=== PATIENT | male | born 1965 | race African-American/Black ===

== ENCOUNTER 2024-02-09 01:10 | Emergency (ER) | payer OTHER ==
[2024-02-09 03:42] LABS: MCHC 32.1 g/dL (32.0-36.0); MCV 90.3 fL (80-100); MPV 8.1 fL (7.6-11.3); Platelets 63 thou/uL (152-406); Red Cell Distribution Width 15.5 % (12.1-15.2)
[2024-02-09 03:57] LABS: ALT/SGPT 21 U/L (16-61); AST/SGOT 45 U/L (15-37); Albumin 2.3 g/dL (3.4-5.0); Albumin/Globulin Ratio 0.5 (1.1-1.8); Alkaline Phosphatase 180 U/L (45-117); Anion Gap 5.5 mEq/L (5.0-15.0); BUN Blood Urea Nitrogen 6 mg/dL (7-18); Bicarbonate 28 mEq/L (21-32); Bilirubin Total 3.8 mg/dL (0.2-1.0); Globulin 4.9 g/dL (2.3-3.5); Glomerular Filtration Rate 100 ml/min (=/>90); Glucose Level 147 mg/dL (74-106); Lipase 19 U/L (13-75); Potassium 3.5 mEq/L (3.5-5.1); Protein, Total 7.2 g/dL (6.4-8.2); Sodium Level 139 mEq/L (136-145)
[2024-02-09 03:58] LABS: C-Reactive Protein < 2.90 mg/L (<3.00)
--- NOTE | 2024-02-09 04:17 | ER ---
Nurse's Notes [facility] Name: Klaus Casillas Age: 59 yrs Sex: Male : 1965 Arrival Date: 02/09/2024 Time: 01:10 Bed 5 Private MD: Diagnosis: Vomiting, unspecified;Acute gastritis Presentation: 02/08 01:24 Chief complaint: Patient states: upper abdominal pain radiating to right flank with lg3 vomiting X1 hr. Coronavirus screen: Client denies travel out of the [place] in the last 14 days. At this time, the client does not indicate any symptoms associated with coronavirus-19. Ebola Screen: No symptoms or risks identified at this time. Initial Sepsis Screen: Does the patient meet any 2 criteria? No. Patient's initial sepsis screen is negative. Does the patient have a suspected source of infection? No. Patient's initial sepsis screen is negative. Risk Assessment: Do you want to hurt yourself or someone else? Patient reports no desire to harm self or others. Onset of symptoms was February 09, 2024. 01:24 Method Of Arrival: Ambulatory lg3 01:24 Acuity: TL 3 lg3 Triage Assessment: 01:26 General: Appears in no apparent distress. uncomfortable, Behavior is calm, cooperative. lg3 Pain: Complains of pain in epigastric area Pain radiates to anterior aspect of right lateral abdomen. EENT: No deficits noted. No signs and/or symptoms were reported regarding the EENT system. Neuro: No deficits noted. [place] Agitation-Sedation Scale (RASS): 0 - Alert and Calm Level of Consciousness is awake, alert, obeys commands, Oriented to person, place, time, situation. Cardiovascular: No deficits noted. Denies chest pain, shortness of breath, Capillary refill < 3 seconds Clubbing of nail beds is absent JVD is absent Patient's skin is warm and dry. Respiratory: No deficits noted. Airway is patent Respiratory effort is even, unlabored, Respiratory pattern is regular, symmetrical. GI: Abdomen is flat, non-distended, Reports upper abdominal pain, nausea, vomiting. : No signs and/or symptoms were reported regarding the genitourinary system. Derm: No deficits noted. No signs and/or symptoms reported regarding the dermatologic system. Skin is intact, is healthy with good turgor, Skin is dry, Skin is normal, Skin temperature is warm. Musculoskeletal: No deficits noted. Circulation, motion, and sensation intact. Range of motion: intact in all extremities. Historical: - Allergies: No Known Allergies; lg3 - Home Meds: Unable to obtain [Active]; lg3 - PMHx: Hypertensive disorder; Cirrhosis of liver; lg3 - PSHx: None; lg3 - Immunization history:: Adult Immunizations up to date. - Infectious Disease History:: Denies. - Social history:: Smoking status: Patient reports the use of cigarette tobacco products, smokes one-half pack cigarettes per day, Patient/guardian denies using alcohol, street drugs. - Family history:: not pertinent. Screenin:30 [facility] ED Fall Risk Assessment (Adult) History of falling in the last 3 months, br2 including since admission No falls in past 3 months (0 pts) Confusion or Disorientation No (0 pts) Intoxicated or Sedated No (0 pts) Impaired Gait No (0 pts) Mobility Assist Device Used No (0 pt) Altered Elimination No (0 pt) Score/Fall Risk Level 0 - 2 = Low Risk Oriented to surroundings. Abuse screen: Denies threats or abuse. Denies injuries from another. Nutritional screening: No deficits noted. Tuberculosis screening: No symptoms or risk factors identified. Assessment: Reassessment: Patient and/or family updated on plan of care and expected duration. Pain br2 level reassessed. Patient is alert, oriented x 3, equal unlabored respirations, skin warm/dry/pink. General: Appears uncomfortable, Behavior is cooperative, agitated, anxious. Pain: Complains of pain in right upper quadrant Pain radiates to right mid back Pain currently is 10 out of 10 on a pain scale. Pain began 1 hour ago. Neuro: [place] Agitation-Sedation Scale (RASS): 0 - Alert and Calm Level of Consciousness is awake, alert, obeys commands, Oriented to person, place, time. Cardiovascular: Capillary refill < 3 seconds. Respiratory: Airway is patent Respiratory effort is even, unlabored, Respiratory pattern is regular, symmetrical. GI: Abdomen is round Bowel sounds present X 4 quads. Abdomen is tender to palpation in right upper quadrant. : No signs and/or symptoms were reported regarding the genitourinary system. EENT: No signs and/or symptoms were reported regarding the EENT system. Derm: No signs and/or symptoms reported regarding the dermatologic system. Musculoskeletal: No signs and/or symptoms reported regarding the musculoskeletal system. 02:30 Reassessment: Patient and/or family updated on plan of care and expected duration. Pain br2 level reassessed. Patient is alert, oriented x 3, equal unlabored respirations, skin warm/dry/pink. Patient states feeling better. Patient states symptoms have improved. Vital Signs: 01:24 BP 169 / 79; Pulse 87; Resp 17 S; Temp 97.8(O); Pulse Ox 97% on R/A; Weight 83.91 kg lg3 (R); Height 5 ft. 8 in. (R); Pain 9/10; 02:00 BP 159 / 59; Pulse 76; Resp 18 S; Pulse Ox 92% on R/A; Pain 0/10; cp4 03:00 BP 157 / 81; Pulse 91; Resp 16 S; Pulse Ox 92% on R/A; cp4 04:29 BP 148 / 74; Pulse 92; Resp 18; Pulse Ox 97% ; cp4 01:24 Body Mass Index 28.13 (83.91 kg, 172.72 cm) lg3 01:24 Pain Scale: Adult lg3 02:00 Pain Scale: Adult cp4 [place] Coma Score: 06:05 Eye Response: spontaneous(4). Motor Response: obeys commands(6). Verbal Response: sp4 oriented(5). Total: 15. ED Course: 01:13 Patient arrived in ED. gm2 01:25 Triage completed. lg3 01:26 Arm band placed on right wrist. lg3 01:30 Sun William, TACO is Primary Nurse. br2 01:30 Patient has correct armband on for positive identification. Bed in low position. Call br2 light in reach. Side rails up X 1. Provided Education on: PLAN OF CARE. 01:33 Inserted saline lock: 20 gauge in right antecubital area, using aseptic technique. br2 Blood collected. Flushed with 10 mL NS. 01:49 Edgardo Buenrostro MD is Attending Physician. sp4 02:49 CRP Sent. br2 03:39 Lipase Sent. cp4 03:39 CMP Sent. cp4 03:39 CBC with Diff Sent. cp4 03:39 CRP Sent. cp4 04:17 Fab Amaya MD is Referral Physician. sp4 04:29 No provider procedures requiring assistance completed. intact, bleeding controlled, No cp4 redness/swelling at site. Pressure dressing applied. Administered Medications: No medications were administered Medication: 04:29 VIS not applicable for this client. cp4 Outcome: 04:17 Discharge ordered by MD. sp4 04:29 Discharged to home ambulatory, cp4 04:29 Condition: stable 04:29 Discharge instructions given to patient, Instructed on discharge instructions, follow up and referral plans. Demonstrated understanding of instructions, follow-up care, 04:29 Patient left the ED. cp4 Signatures: Diana Hernandez, RN RN lg3 Edgardo Buenrostro MD MD sp4 Maite Ta cp4 Stephanie Landers gm2 Sun William RN RN br2
--- NOTE | 2024-02-09 04:18 | EDPHYS ---
Physician Documentation [facility] Name: Klaus Casillas Age: 59 yrs Sex: Male : 1965 Arrival Date: 02/09/2024 Time: 01:10 Bed 5 Private MD: ED Physician Edgardo Buenrostro HPI: 02/08 01:49 This 59 yrs old Black Male presents to ER via Ambulatory with complaints of Back Pain, sp4 Abdominal Pain, Nausea/Vomiting. 06:05 59 -year-old male with history of liver cirrhosis secondary to alcohol abuse presents sp4 with acute vomiting after he ate sugary and fatty meal.. Historical: - Allergies: : No Known Allergies; lg3 - Home Meds: : Unable to obtain [Active]; lg3 - PMHx: : Hypertensive disorder; Cirrhosis of liver; lg3 - PSHx: : None; lg3 - Immunization history:: Adult Immunizations up to date. - Infectious Disease History:: Denies. - Social history:: Smoking status: Patient reports the use of cigarette tobacco products, smokes one-half pack cigarettes per day, Patient/guardian denies using alcohol, street drugs. - Family history:: not pertinent. ROS: 06:05 Constitutional: Negative for fever, chills, and weight loss, Positive for vomiting. sp4 06:05 All other systems are negative, Exam: 06:05 Constitutional: This is a well developed, well nourished patient who is awake, alert, sp4 and in no acute distress. Head/Face: Normocephalic, atraumatic. Eyes: Pupils equal round and reactive to light, extra-ocular motions intact. Lids and lashes normal. Conjunctiva and sclera are not injected. Cornea within normal limits. Periorbital areas with no swelling, redness, or edema. ENT: Nares patent. No nasal discharge, no septal abnormalities noted. Tympanic membranes are normal and external auditory canals are clear. Oropharynx with no redness, swelling, or masses, exudates, or evidence of obstruction, uvula midline. Mucous membranes moist. Neck: Trachea midline, no thyromegaly or masses palpated, and no cervical lymphadenopathy. Supple, full range of motion without nuchal rigidity, or vertebral point tenderness. Chest/axilla: Normal chest wall appearance and motion. Nontender with no deformity. No lesions are appreciated. Cardiovascular: Regular rate and rhythm with a normal S1 and S2. No gallops, murmurs, or rubs. Normal PMI, no JVD. No pulse deficits. Respiratory: Lungs have equal breath sounds bilaterally, clear to auscultation and percussion. No rales, rhonchi or wheezes noted. No increased work of breathing, no retractions or nasal flaring. Abdomen/GI: Soft, with normal bowel sounds. No distension or tympany. No guarding or rebound. No evidence of tenderness throughout. Back: No spinal tenderness. No costovertebral tenderness. Skin: Warm, dry with normal turgor. Normal color with no rashes, no lesions, and no evidence of cellulitis. MS/ Extremity: Pulses equal, no cyanosis. Neurovascular intact. Full, normal range of motion. Neuro: Awake and alert, GCS 15, oriented to person, place, time, and situation. Cranial nerves II-XII grossly intact. Motor strength 5/5 in all extremities. Sensory grossly intact. Psych: Awake, alert, with orientation to person, place and time. Behavior, mood, and affect are within normal limits Vital Signs: 01:24 BP 169 / 79; Pulse 87; Resp 17 S; Temp 97.8(O); Pulse Ox 97% on R/A; Weight 83.91 kg lg3 (R); Height 5 ft. 8 in. (R); Pain 9/10; 02:00 BP 159 / 59; Pulse 76; Resp 18 S; Pulse Ox 92% on R/A; Pain 0/10; cp4 03:00 BP 157 / 81; Pulse 91; Resp 16 S; Pulse Ox 92% on R/A; cp4 04:29 BP 148 / 74; Pulse 92; Resp 18; Pulse Ox 97% ; cp4 01:24 Body Mass Index 28.13 (83.91 kg, 172.72 cm) lg3 01:24 Pain Scale: Adult lg3 02:00 Pain Scale: Adult cp4 [place] Coma Score: 06:05 Eye Response: spontaneous(4). Motor Response: obeys commands(6). Verbal Response: sp4 oriented(5). Total: 15. MDM: 02:04 Medical Screening Exam initiated sp4 04:12 ED course: Ultrasound review from hospital record - Coarsened hepatic echotexture and sp4 contour nodularity, with mild to moderate free ascites, suggesting cirrhosis. Lobulated gallbladder sludge versus noncalcified stones. Dictated By: Marvin Jackson MD 01/13/24 131. 06:05 Differential diagnosis: Gastritis, Gastroenteritis , Fatigue. Data reviewed: vital sp4 signs, nurses notes, lab test result(s), CBC, electrolytes, hepatic panel. Consideration of Admission/Observation Escalation of care including admission/observation considered. 06:09 ED course: Labs consistent with long standing liver cirrhosis. Stable for discharge sp4 home for follow up with GI. Asymptomatic on discharge. . 02/08 02:04 Order name: CBC with Diff sp4 02/08 02:04 Order name: CMP; Complete Time: 04:09 sp4 02/08 02:04 Order name: Lipase; Complete Time: 04:09 sp4 02/08 02:04 Order name: CRP; Complete Time: 04:09 sp4 02/08 03:56 Order name: Manual Differential EDMS 02/08 02:04 Order name: IV Saline Lock; Complete Time: 02:16 sp4 02/08 02:04 Order name: Labs collected and sent; Complete Time: 02:16 sp4 02/08 02:35 Order name: Misc. Order: recollect labs; Complete Time: 02:46 lg3 Administered Medications: No medications were administered Disposition Summary: 02/09/24 04:17 Discharge Ordered Notes: Location: Home sp4 Problem: new sp4 Symptoms: have improved sp4 Condition: Stable sp4 Diagnosis - Vomiting, unspecified sp4 - Acute gastritis sp4 Followup: sp4 - With: Fab Amaya MD - When: 7 - 10 days - Reason: Recheck today's complaints Discharge Instructions: - Discharge Summary Sheet sp4 - Nausea and Vomiting, Adult, Yoaf-to-Arhj sp4 Forms: - Patient Portal Instructions sp4 Signatures: Dispatcher [employer] Diana Slater RN RN lg3 Edgardo Buenrostro MD MD sp4 Corrections: (The following items were deleted from the chart) 02:05 02:05 CBC+H.LAB.BRZ ordered. EDMS EDMS 02:05 02:05 COMPREHENSIVE METABOLIC PANEL+C.LAB.BRZ ordered. EDMS EDMS 02:05 02:05 LIPASE+C.LAB.BRZ ordered. EDMS EDMS
[2024-02-09 04:40] LABS: Band Neutrophils 22 % (0-1); Differential Total Cells Count 100; Eosinophils 1 % (0-3); Lymphocytes 17 % (15-42); Metamyelocytes 1 % (0-0); Monocytes 3 % (0-10); Reactive Lymphocytes 1 %; Segmented Neutrophils 55 % (40-80)
[2024-02-09 04:41] LABS: Blood Morphology Comment NOTED (NOT SEEN); Burr Cells 2+; Platelet Estimate ADEQ
[2024-02-09 11:42] VITALS: TEMP 97.8
[2024-02-09 11:51] VITALS: BP 148/74; O2SAT 97
== END 2024-02-09 04:29 | disposition home or self-care (01) ==
LOC: ER 01:10
DX: K29.00 Acute gastritis without bleeding (principal); K74.60 Unspecified cirrhosis of liver; I10 Essential (primary) hypertension; F17.210 Nicotine dependence, cigarettes, uncomplicated
CPT/HCPCS: 36415; 80053; 83690; 85025; 86140; 99284